=== PATIENT | male | born 1960 | race Hispanic/Latino ===

== ENCOUNTER 2021-05-24 20:52 | Emergency (ER) | payer BC, OTHER ==
[~2021-05-24] VITALS: Ht 170.2 cm; Wt 107.5 kg
[2021-05-24 21:39] LABS: CLARITY,URINE SL CLOUDY (CLEAR); COLOR,URINE YELLOW (YELLOW); KETONES,URINE NEGATIVE (NEGATIVE); LEUKOCYTE ESTERASE ,URINE NEGATIVE (NEGATIVE); NITRITE,URINE POSITIVE (NEGATIVE); PROTEIN,URINE DIPSTICK 2+ (NEGATIVE); URINE UROBILINOGEN 0.2 mg/dL (0.2 - 1)
[2021-05-24 21:41] LABS: BASOPHILS % 0.2 % (0.0-1.0); EOSINOPHILS % 0.1 % (0.0-6.0); HEMATOCRIT 54.6 % (38.2-49.6); HEMOGLOBIN 17.2 g/dL (14.0-18.0); LYMPHOCYTES # (AUTO) 1.5 (1.0-3.2); LYMPHOCYTES % 8.6 % (18.0-39.1); MEAN CORPUSCULAR HEMOGLOBIN 31.3 pg (28-32); MEAN CORPUSCULAR HGB CONC 31.5 g/dL (31-35); MEAN CORPUSCULAR VOLUME 99.5 fL (81-99); MONOCYTES # (AUTO) 1.5 (0.2-0.8); MONOCYTES % 8.7 % (4.4-11.3); NEUTROPHILS # (AUTO) 13.8 (2.1-6.9); NEUTROPHILS % 81.9 % (38.7-80.0); PLATELET COUNT 296 x10e3/uL (140-360); RED BLOOD COUNT 5.49 x10e6/uL (4.3-5.7); RED CELL DISTRIBUTION WIDTH 14.1 % (11.7-14.4)
[2021-05-24 21:45] LABS: BACTERIA,URINE FEW /HPF; EPITHELIAL CELLS,URINE RARE /LPF; RBC,URINE 0-5 /HPF (0-5)
[2021-05-24 21:46] LABS: CALCIUM 9.6 mg/dL (8.4-10.2); CREATININE, SERUM 0.93 mg/dL (0.72-1.25)
[2021-05-24 22:00] LABS: ALBUMIN/GLOBULIN RATIO 0.5 (0.8-2.0)
[2021-05-24] MEDS ORDERED: PIPERACILLIN/TAZOBACTAM 3.375 GM in SODIUM CHLORIDE 0.9% 50ML 50 ML IV ONE (22:30)
[2021-05-24] MEDS ORDERED: ACETAMINOPHEN 325 MG TAB PO STA (22:58)
[2021-05-24] MEDS ORDERED: SODIUM CHLORIDE 0.9% 50ML 50 ML ONE (23:04)
[2021-05-24] MEDS ORDERED: IOPAMIDOL 370 MG/ML 200 ML INFUS..BTL INJ ONE (23:04)
[2021-05-24] MEDS ORDERED: SODIUM CHLORIDE 0.9% 1000ML 1,000 ML IV SCH (23:45)
[2021-05-24] MEDS ORDERED: ONDANSETRON HCL INJ 2MG/ML 2ML 2 MG/ML VIAL IV PRN (23:45)
[2021-05-24] MEDS ORDERED: Morphine 4mg Syringe 4 MG/ML INJ IV PRN (23:45)
[2021-05-25 00:02] LABS: CREATINE KINASE 57 IU/L (30-200)
[2021-05-25 02:50] VITALS: BP 100/57
[2021-05-25] MEDS ORDERED: PIPERACILLIN/TAZOBACTAM 3.375 GM in SODIUM CHLORIDE 0.9% 50ML 50 ML IV SCH (06:00)
== END 2021-05-25 03:15 | disposition short-term general hospital (02) ==
LOC: ER 21:00
DX: C64.1 Malignant neoplasm of right kidney, except renal pelvis (principal); N41.9 Inflammatory disease of prostate, unspecified; A41.9 Sepsis, unspecified organism; Z20.822 Contact with and (suspected) exposure to COVID-19
CPT/HCPCS: 36415; 74177; 80053; 81001; 82550; 82553; 83605; 83690; 84484; 85025; 87040; 94799; 99284; J2543; J7030; Q9967; U0002